=== PATIENT | female | born 1960 | race Caucasian/White ===

== ENCOUNTER 2024-05-22 13:49 | Emergency (ER) | payer BC ==
[~2024-05-22] VITALS: Ht 170.2 cm; Wt 110.0 kg
[~2024-05-22 13:49] MED LIST: ARIP5TAB12 PO; DEPLIN PO; DESV100T PO; FENO145T26 PO; LISD70CA PO; LORC10TA PO; NORCO10T PO; OMEG1CAP61 PO
[2024-05-22 16:53] VITALS: BP 142/96; PULSE 81; RESP 17; TEMP 98.6; O2SAT 98
== END 2024-05-22 16:55 | disposition home or self-care (01) ==
LOC: ER 13:50 → MERGE 13:50 → ER 16:55
DX: S00.81XA Abrasion of other part of head, initial encounter (principal); M79.602 Pain in left arm; M25.522 Pain in left elbow; M25.512 Pain in left shoulder; Z88.6 Allergy status to analgesic agent; Z88.5 Allergy status to narcotic agent; X58.XXXA Exposure to other specified factors, initial encounter; Y93.89 Activity, other specified; Y92.89 Other specified places as the place of occurrence of the external cause; Y99.8 Other external cause status
CPT/HCPCS: 73030; 73090; 73110; 73130; 99284

== ENCOUNTER 2025-05-07 11:32 | Outpatient (CLI) | payer MEDICARE, BC ==
--- NOTE | 2025-05-07 14:48 | RADIOLOGY REPORT ---
PROCEDURE: MR MRI LUMBAR SPINE Indication: SPONDYLOSIS W/O MYELOPATHY OR RADICULOPATHY, LUMBAR REGION COMPARISON: None TECHNIQUE: Multiplanar multisequence images of the the lumbar spine are obtained. FINDINGS: For the purpose of this examination, there are 5 lumbar vertebral body types counting from the lumbos acral junction. Chronic appearing L1 vertebral body compression deformity with 20% loss height. Moderate to severe mu ltilevel disc space narrowing and desiccation most pronounced at T12-L1, L1-2, L4-5. Marrow edematous endplate changes at L2-3 and less so at T12-L1, L1-2. Lumbar levocurvature. 4 mm anterolisthesis of L4 upon L5. Conus terminates at the T12 level. T12-L1: 3 mm disc protrusion. Pxdh-zm-jvqompob facet and flavum hypertrophy. No spinal canal stenosi s. Syxm-rt-pfrbjdio bilateral neural foraminal stenosis. L1-2: 4 mm disc protrusion. Moderate facet and flavum hypertrophy. Severe right and moderate left jose de jesus ral foraminal stenosis. L2-3: 2 mm disc protrusion. Ipqz-ua-pebmvfrr facet and flavum hypertrophy. Thecal sac measures 9 mm AP. Mild spinal canal stenosis. Severe right and moderate to severe left neural foraminal stenosis. L3-4: 3 mm disc protrusion. Moderate facet and flavum hypertrophy. No spinal canal stenosis. Moderate to severe bilateral neural foraminal stenosis. L4-5: 4 mm disc protrusion. Moderate to severe facet and flavum hypertrophy. No spinal canal stenosis . Moderate to severe bilateral neural foraminal stenosis. L5-S1: Small disc protrusion. Sfzl-jf-jccjfvdd facet and flavum hypertrophy. No spinal canal stenosi s. Aalj-uw-dstboxls bilateral neural foraminal stenosis. IMPRESSION: Severe lumbar degenerative disc disease with multilevel moderate to severe neural foraminal stenosis as described above. No evidence for high-grade spinal canal stenosis. Mild spinal canal stenosis L2-3.
== END 2025-05-07 23:59 | disposition home or self-care (01) ==
LOC: MRI 11:32
PROVIDERS: ATTEND Physician Assistant Surgical
DX: S32.010A Wedge compression fracture of first lumbar vertebra, initial encounter for closed fracture (principal); M47.816 Spondylosis without myelopathy or radiculopathy, lumbar region; M51.370 Other intervertebral disc degeneration, lumbosacral region with discogenic back pain only; M16.11 Unilateral primary osteoarthritis, right hip; M47.812 Spondylosis without myelopathy or radiculopathy, cervical region; M48.061 Spinal stenosis, lumbar region without neurogenic claudication; M46.1 Sacroiliitis, not elsewhere classified; X58.XXXA Exposure to other specified factors, initial encounter; Y93.89 Activity, other specified; Y92.89 Other specified places as the place of occurrence of the external cause; Y99.8 Other external cause status
CPT/HCPCS: 72148